=== PATIENT | female | born 1965 | race Caucasian/White ===

== ENCOUNTER → 2017-01-21 | Outpatient (CLI) | payer BC ==
--- NOTE | 2017-01-21 15:25 | DIAGNOSTIC IMAGING REPORT ---
MRI left hip LEFT LOWER EXT JOINT WITHOUT CLINICAL HISTORY: LT HIP PAIN pain TECHNIQUE: MRI multi axial acquisition COMPARISON STUDY: None FINDINGS: Signal characteristics the osseous structures are in general unremarkable. Abnormal signal characteristics are identified in the central superior aspect of the left femoral head. Diminished signal on T1 images measures 9 x 11 mm in cross-section with a millimeters at depths. This shows heterogeneous increase in signal in the T2 images is a calcific focus of avascular necrosis. There is also a heterogeneous focus lateral margin of the left superior acetabulum measuring 8 mm. An additional focus of avascular necrosis versus bone contusion must be considered. There is moderate degenerative change of the articular services of the right as well as left hip. There is no evidence for avascular necrosis of the right hip. There is no evidence for acetabular protrusion. All remaining osseous structures show unremarkable signal characteristics. All major muscle bundles are symmetric. No abnormal mass or collection is appreciated. IMPRESSION: 1. Somewhat compromised exam due to patient body habitus and moderate patient motion. 2. Nevertheless, study suggests a focus of avascular necrosis versus subchondral defect central superior femoral head measuring 9 x 11 mm in cross-section at the articular surface, and extending to a depth of 8 mm. 3. Although there appears to be a component of bony substance loss, exact quantification is difficult due to the lack of resolution. 4. Focal 8 mm contusion lateral aspect left superior acetabular margin laterally. 5. Generalized moderate to rather significant degenerative change of the articular services of both hips Electronically signed by: Maynor Ramirez M.D. 01/21/2017 3:23 PM Dictated Date/Time: 01/21/2017 3:15 PM
== END | disposition home or self-care (01) ==
LOC: C.MRIBC 14:28
PROVIDERS: ATTEND Orthopaedic Surgery Orthopaedic Surgery of the Spine
DX: S30.0XXA Contusion of lower back and pelvis, initial encounter (principal); X58.XXXA Exposure to other specified factors, initial encounter; M16.0 Bilateral primary osteoarthritis of hip

== ENCOUNTER → 2017-01-22 | Outpatient (CLI) | payer BC ==
--- NOTE | 2017-01-22 13:45 | DIAGNOSTIC IMAGING REPORT ---
LEFT HIP INJECTION UNDER FLUOROSCOPIC GUIDANCE CLINICAL HISTORY: Steroid injection. Degenerative change. PROCEDURE: The risks, benefits, and alternatives to the procedure were discussed with the patient. Written informed consent was obtained. The patient was placed supine on the fluoroscopy table, and a left hip injection was performed under fluoroscopic guidance. The area was prepped and draped in the usual sterile fashion. The skin and soft tissues anesthetized with local 1% lidocaine. The left hip joint was accessed utilizing a 22-gauge needle, and intra-articular positioning was confirmed by injecting a small volume of Optiray 300. The prescribed dosage of 2 cc of betamethasone and 8 cc of 0.5% Bupivacaine was then injected into the joint space and flushed with saline. The procedure was well tolerated and without immediate complication. The patient left the department in satisfactory condition. FLUOROSCOPY TIME: 20 seconds. IMPRESSION: Successful steroid injection of the left hip under fluoroscopic guidance. Electronically signed by: Rojelio Blanca M.D. 01/22/2017 1:43 PM Dictated Date/Time: 01/22/2017 1:41 PM
== END | disposition home or self-care (01) ==
LOC: C.RADBC 12:35
PROVIDERS: ATTEND Orthopaedic Surgery Orthopaedic Surgery of the Spine
DX: M16.12 Unilateral primary osteoarthritis, left hip (principal)

== ENCOUNTER → 2017-08-05 | Outpatient (CLI) | payer BC ==
[~2017-08-05] MED LIST: MethylPREDNISolone HOME PACK 16 MG TAB PO SCH
--- NOTE | 2017-08-05 12:16 | DIAGNOSTIC IMAGING REPORT ---
L INJ MAJOR JNT SHLDR,HIP,KNEE CLINICAL HISTORY: 52 years-old Female presenting with L HIP DJD. COMPARISON: 01/22/2017. PROCEDURE: The risks, benefits, and alternatives to the procedure were discussed with the patient. Written informed consent was obtained. The patient was placed supine on the fluoroscopy table, and a left hip injection was performed under fluoroscopic guidance. The area was prepped and draped in the usual sterile fashion. The skin and soft tissues anesthetized with local 1% lidocaine. The left hip joint was accessed utilizing a 22-gauge needle. Approximately 1 mL of Optiray 300 was injected into the joint space under fluoroscopic guidance to confirm intra-articular positioning. Subsequently, a 10 mL mixture containing 8 mL of 0.5% Bupivacaine and 2 mL of betamethasone was injected into the joint. The procedure was well tolerated without immediate complication. Fluoroscopy dosage (mGy): Not available. Fluoroscopy time: 30 seconds. Number of fluoroscopic spot images: 0. IMPRESSION: Successful injection of the left hip under fluoroscopic guidance. Electronically signed by: Cesar Broussard M.D. 08/05/2017 12:15 PM Dictated Date/Time: 08/05/2017 12:14 PM
== END | disposition home or self-care (01) ==
LOC: C.RADBC 10:51
PROVIDERS: ATTEND Orthopaedic Surgery Orthopaedic Surgery of the Spine
DX: M16.12 Unilateral primary osteoarthritis, left hip (principal)

== ENCOUNTER 2018-02-08 05:35 | Inpatient (IN) | payer BC ==
[2018-01-10 12:40] VITALS: BMI 33.0
--- NOTE | 2018-01-10 13:20 | PAT Medication Instructions ---
Service Date Jan 10, 2018. Current Home Medication List Cholecalciferol (Vitamin D3), 1 CAP PO QPM Diclofenac (Voltaren), 75 MG PO BID Docusate Sodium (Docusate Sodium), 1 CAP PO QPM Hydrocodon/Acetaminophen 5MG/300MG (Vicodin (5MG/300MG)), 1-2 TAB PO UD PRN for Pain Ibuprofen (Advil), 400 MG PO UD PRN for Pain Lorazepam (Ativan), 0.5 MG PO UD PRN for PRN Magnesium Oxide (Magnesium), 1 CAP PO Tramadol (Ultram), 1 TAB PO UD PRN for Pain Medication Instructions For Your Scheduled Surgery - Hold the following medications 10 days prior to surgery: Diclofenac (Voltaren), 75 MG PO BID Ibuprofen (Advil), 400 MG PO UD PRN for Pain - Take the following medications the morning of surgery with a sip of water: Hydrocodon/Acetaminophen 5MG/300MG (Vicodin (5MG/300MG)), 1-2 TAB PO UD PRN for Pain (if needed, can be taken up to four hours before surgery) Lorazepam (Ativan), 0.5 MG PO UD PRN for PRN (if needed) Tramadol (Ultram), 1 TAB PO UD PRN for Pain (if needed, can be taken up to four hours before surgery) - Take the following medications as scheduled the night before surgery: Cholecalciferol (Vitamin D3), 1 CAP PO QPM Docusate Sodium (Docusate Sodium), 1 CAP PO QPM Hydrocodon/Acetaminophen 5MG/300MG (Vicodin (5MG/300MG)), 1-2 TAB PO UD PRN for Pain (if needed) Lorazepam (Ativan), 0.5 MG PO UD PRN for PRN (if needed) Tramadol (Ultram), 1 TAB PO UD PRN for Pain (if needed) Magnesium Oxide (Magnesium), 1 CAP PO If you have any questions please call us at [phone] or [phone] or [phone]
--- NOTE | 2018-01-10 14:07 | DIAGNOSTIC IMAGING REPORT ---
CHEST 2 VIEWS ROUTINE HISTORY: 52 years-old Female PAT preoperative exam. No acute chest complaints. COMPARISON: None available TECHNIQUE: PA and lateral views of the chest FINDINGS: Cardiomediastinal and hilar silhouettes are within normal limits. There is no pneumothorax, pleural effusion, focal airspace consolidation or overt pulmonary edema. The bones of the chest appear grossly intact. IMPRESSION: No acute process. The above report was generated using voice recognition software. It may contain grammatical, syntax or spelling errors. Electronically signed by: Sandro Becerra M.D. 01/10/2018 2:05 PM Dictated Date/Time: 01/10/2018 2:05 PM
[2018-01-10 14:43] LABS: BASO % 0.4 %; BASO ABS # 0.02 K/uL (0-0.2); EOS % 1.9 %; HEMATOCRIT 38.7 % (37-47); HEMOGLOBIN 13.1 g/dL (12.0-16.0); IG# 0.03 K/uL (0.00-0.02); LYMPH % 17.3 %; MEAN CORPUSCULAR HEMOGLOBIN 30.1 pg (25-34); MEAN CORPUSCULAR HGB CONC 33.9 g/dl (32-36); MEAN PLATELET VOLUME 10.2 fL (7.4-10.4); MONO % 10.6 %; MONO ABS # 0.55 K/uL (0.11-0.59); NEUT % 69.2 %; NEUT ABS # 3.59 K/uL (1.4-6.5); PLATELET COUNT 318 K/uL (130-400); RED CELL DISTRIBUTION WIDTH CV 13.8 % (11.5-14.5); RED CELL DISTRIBUTION WIDTH SD 45.2 fL (36.4-46.3); WHITE BLOOD COUNT 5.19 K/uL (4.8-10.8)
[2018-01-10 14:53] LABS: INR 0.9 (0.9-1.1); PTT PATIENT 26.1 SECONDS (21.0-31.0)
[2018-01-10 15:48] LABS: CALCIUM 9.2 mg/dl (8.5-10.1); CREATININE 1.06 mg/dl (0.60-1.20); POTASSIUM 4.6 mmol/L (3.5-5.1)
--- NOTE | 2018-02-02 21:11 | HISTORY & PHYSICAL EXAMINATION ---
DATE OF ADMISSION: 02/08/2018 CHIEF COMPLAINT: Left hip pain. HISTORY OF PRESENT ILLNESS: This is a 52-year-old female referred by my partner Dr. Mcgrath for surgical treatment of her left hip. She has about a 3-year history of increasing left hip pain and discomfort. It has gradually just gotten worse over time. It got markedly worse over the past year. She has had multiple musculoskeletal issues in the past including some chronic back pain. She has been through extensive conservative care. She continues to have groin pain, thigh pain, buttock pain. The more she walks, the more she hurts. She has difficulty going to the grocery store due to her limited walking tolerance. She has taken intermittent narcotics which takes the edge off it when it is real severe. She has taken various NSAIDs with minimal relief. She would really like to have her left hip fixed. PAST MEDICAL HISTORY: 1. Sciatica. 2. Low back pain. 3. Arthritis. 4. Gastroesophageal reflux disease. 5. Obesity, BMI of 33. PREVIOUS SURGERIES: Include: 1. Cyst removal from her ovary in 1977. 2. Cystectomy and ablation in 2002. ALLERGIES: IODINE, SPECIFICALLY SHELLFISH ALLERGY. No topical iodine allergy. CURRENT MEDICATIONS: Include: 1. Magnesium. 2. Diclofenac. SOCIAL HISTORY: This is a 52-year-old female. She is . Does not smoke. FAMILY HISTORY: Negative for heart disease, diabetes or blood clots. REVIEW OF SYSTEMS: Negative for diabetes, neurologic problem, vascular problem, bleeding disorders. Denies any chest pain, no shortness of breath. No history of DVT or PE. She does have a lot of musculoskeletal aches and pains. PHYSICAL EXAMINATION: GENERAL: Shows a pleasant middle-aged female, looks to be in pretty good health. HEENT: Benign. NECK: Supple, no lymphadenopathy. LUNGS: Clear to auscultation. HEART: Regular rate and rhythm. ABDOMEN: Soft, nontender, nondistended. EXTREMITIES: Grossly neurovascularly intact except as follows: Examination of left hip and leg reveals the patient walks with an antalgic gait. Leg lengths appear equal. She has a fairly good hip motion with internal rotation to about 10 degrees, does cause pain with this. Negative straight leg raise. Motor strength is normal. X-RAYS: X-rays left hip reviewed, show advanced left hip DJD. She has complete loss of her joint space. She has got not a lot of osteophyte formation. X-rays of the lumbar spine were also reviewed, show moderate lumbar spondylosis. A little bit of degenerative spondylolisthesis at L4 and L5, fairly mild. ASSESSMENT: A 52-year-old white female with multiple musculoskeletal aches and pains with advanced left hip arthritis. Certainly, she has got multiple sources of musculoskeletal pain but significant hip arthritis. She has failed conservative treatment. She would like to have her left hip replaced. PLAN: We will take her to the operating room and do left total hip replacement. The risks and benefits of this procedure were explained to the patient including but not limited to DVT, PE, , infection, neurological injury, vascular injury, bleeding problem, pain, limited range of motion, stiffness, failure to relieve her symptoms, incomplete relief of symptoms, need for further surgery in future, fracture, leg length inequality, nerve palsy, dislocation, need for revision surgery, incomplete relief of symptoms. She is fully aware this is not going to take away all of her aches and pains but I do think it can help her significantly. As far as discharge plans, she is planning to be discharged to home. Her can assist in her care and she has multiple family members to help as well. She knows to hold her diclofenac 2 weeks preop. We have encouraged her to limit any narcotic use preoperatively.
[2018-02-08] VITALS (21 sets, daily range): BP systolic 93–143; BP diastolic 58–93; PULSE 65–96; TEMP 36.4–39; O2SAT 94–100; Ht 172.7 cm; Wt 97.7 kg
[~2018-02-08] VITALS: Ht 172.7 cm; Wt 97.7 kg
[~2018-02-08 05:35] MED LIST changes: +CHOL2000 PO; +DICL-201 PO; +DOCU100C31 PO; +HYDR-3419 PO; +IBUP-1050 PO; +LORA-741 PO; +MAGN1CAP4 PO; -MethylPREDNISolone HOME PACK 16 MG TAB PO SCH; +TRAM-10 PO
[2018-02-08] MEDS ORDERED: FAMOTIDINE 20 MG TAB PO SCH (06:00)
[2018-02-08] MEDS ORDERED: CEFAZOLIN 2000MG IV PUSH 15 ML IV SCH (06:00)
[2018-02-08] MEDS ORDERED: LACTATED RINGER'S 1000ML IV SCH (06:00)
[2018-02-08] MEDS ORDERED: ACETAMINOPHEN 500 MG TAB PO SCH (06:00)
[2018-02-08] MEDS ORDERED: SCOPOLAMINE 1.5 MG TDSY TD SCH (06:00)
[2018-02-08] MEDS ORDERED: GABAPENTIN 900 MG PO SCH (06:00)
[2018-02-08] MEDS ORDERED: TRANEXAMIC ACID INJ 1,000 MG x 1 Bag Intra-Op IV SCH ×2 (06:00)
[2018-02-08] MEDS ORDERED: LACTATED RINGER'S 1000ML 500 ML IV SCH (06:00)
[2018-02-08] MEDS ORDERED: METOCLOPRAMIDE HCL 10 MG TAB PO SCH (06:00)
[2018-02-08] MEDS ORDERED: BUPIVACAINE 0.5 % 5 MG/1 ML PF 10ML VIAL ONE (06:21)
[2018-02-08] MEDS ORDERED: MoRPHine SULFATE PF 1 MG/ML 10 ML AMP/VIAL ONE (06:40)
[2018-02-08] MEDS ORDERED: MIDAZOLAM HCL 1 MG/ML 2ML VIAL ONE ×2 (06:45→07:13)
[2018-02-08] MEDS ORDERED: FENTANYL CITRATE INJ 50 MCG/1 ML 2 ML VIAL ONE (06:45)
[2018-02-08] MEDS ORDERED: BUPIVACAINE/EPINEPHRINE 0.5% MPF 1:200,000 30 ML VIAL ONE (06:46)
[2018-02-08] MEDS ORDERED: BACITRACIN 50000 UNIT VIAL ONE (06:46)
--- NOTE | 2018-02-08 06:47 | History & Physical Bridge Note ---
H&P Re-Evaluation Bridge Note: I have examined the patient, reviewed the History & Physical and in the interval since the performance of the History & Physical I have noted the following changes of clinical significance: No changes noted
[2018-02-08] MEDS ORDERED: PROPOFOL IV EMULSION 10 MG/ML 20 ML VIAL IV ONE (07:20)
[2018-02-08] MEDS ORDERED: ONDANSETRON INJ 2 MG/ML 2 ML VIAL ONE (07:20)
[2018-02-08] MEDS ORDERED: DiphenhydrAMINE HCL 50 MG/ML VIAL ONE (07:20)
[2018-02-08] MEDS ORDERED: LIDOCAINE HCL 2% 2 ML VIAL (20MG/ML) ONE (07:20)
[2018-02-08] MEDS ORDERED: PHENYLEPHRINE 100MCG/ML 5ML SYR ONE (07:34)
[2018-02-08] MEDS ORDERED: LACTATED RINGER'S 1000ML 500 ML IV PRN (07:58)
[2018-02-08] MEDS ORDERED: NALOXONE HCL INJ 0.08 MG in SYRINGE 1.8 ML IV PRN (07:58)
[2018-02-08] MEDS ORDERED: SODIUM CHLORIDE 0.9% 1000ML 1,000 ML IV PRN (07:58)
[2018-02-08] MEDS ORDERED: NALOXONE HCL INJ 1 MG in SODIUM CHLORIDE 0.9% 1000ML 1,000 ML IV PRN (07:58)
[2018-02-08] MEDS ORDERED: NALOXONE HCL 0.4 MG/1 ML VIAL/CARP IV PRN (08:00)
[2018-02-08] MEDS ORDERED: MoRPHine SULFATE 2 MG/ML CARP IV PRN (08:00)
[2018-02-08] MEDS ORDERED: LORAZEPAM 1 MG TAB PO PRN (08:00)
[2018-02-08] MEDS ORDERED: MoRPHine SULFATE PF 1 MG/ML 10 ML AMP/VIAL EPI PRN (08:00)
[2018-02-08] MEDS ORDERED: MEPERIDINE HCL 25 MG/ML CARP IV PRN (08:00)
[2018-02-08] MEDS ORDERED: DiphenhydrAMINE HCL 50 MG/ML VIAL IV PRN ×2 (08:00)
[2018-02-08] MEDS ORDERED: KETOROLAC TROMETHAMINE 30 MG/ML VIAL IV. PRN (08:00)
[2018-02-08] MEDS ORDERED: NO NARCOTICS OR SEDATIVES SCH (08:00)
[2018-02-08] MEDS ORDERED: ONDANSETRON INJ 2 MG/ML 2 ML VIAL IV PRN ×2 (08:00)
[2018-02-08] MEDS ORDERED: EpHEDrine SULFATE INJ 50 MG/ML AMP IV PRN ×2 (08:00)
[2018-02-08] MEDS ORDERED: FENTANYL CITRATE INJ 50 MCG/1 ML 2 ML VIAL IV PRN (08:00)
[2018-02-08] MEDS ORDERED: LORAZEPAM INJ 0.5 MG in SYRINGE 0.75 ML IV PRN (08:00)
[2018-02-08] MEDS ORDERED: PROMETHAZINE HCL INJ 6.25 MG in SODIUM CHLORIDE 0.9% 50ML 50 ML IV PRN (08:00)
[2018-02-08] MEDS ORDERED: NALBUPHINE HCL INJ 10 MG/ML AMP IV PRN (08:00)
[2018-02-08] MEDS ORDERED: PROMETHAZINE HCL INJ 12.5 MG in SODIUM CHLORIDE 0.9% 50ML 50 ML IV PRN (08:00)
[2018-02-08] MEDS ORDERED: ATROPINE SULFATE 0.1 MG/ML 5ML SYR IV PRN (08:00)
--- NOTE | 2018-02-08 08:39 | [facility] Post Operative Brief Note ---
Immediate Operative Summary Operative Date Feb 08, 2018. Pre-Operative Diagnosis Left Hip Degenerative Joint Disease Post-Operative Diagnosis Same as preop Procedure(s) Performed Left Total Hip Arthroplasty Uncemented Surgeon Dr. Glaser Housefellow Surgeon(s) Dano Joiner PA-C Estimated Blood Loss 300 ml Findings Consistent with Post-Op Diagnosis Fluids (cc crystalloids) 1800 cc Specimens A. Left Femoral Head Drains None Anesthesia Type Spinal MAC Complication(s) none Disposition Accompanied Pt To Recover: yes Disposition: Recovery Room / PACU
[2018-02-08] MEDS ORDERED: BISACODYL 10 MG SUPP PR PRN (08:45)
[2018-02-08] MEDS ORDERED: ALUMINUM/MAGNESIUM/SIMETH (MAALOX MAX) 30 ML UDC PO PRN (08:45)
[2018-02-08] MEDS ORDERED: SILVER SULFADIAZINE 1% CR 50 GM JAR EXT PRN (08:45)
[2018-02-08] MEDS ORDERED: MAGNESIUM HYDROXIDE SUSP 30 ML UDC PO PRN (08:45)
[2018-02-08] MEDS: MULTIVITAMIN TAB PO SCH (09:00)
[2018-02-08] MEDS: PANTOprazole SOD 40 MG TAB PO SCH (09:00)
[2018-02-08] MEDS: DOCUSATE SODIUM 100 MG CAP PO SCH ×2 (09:00→20:44)
--- NOTE | 2018-02-08 09:53 | Anesthesiology Progress Note ---
Anesthesia Post Op Note Date & Time Feb 08, 2018 at 09:53 Vital Signs Pain Intensity: 0 Vital Signs Past 12 Hours Date Time Temp Pulse Resp B/P (MAP) Pulse Ox O2 Delivery O2 Flow Rate FiO2 02/08/18 09:40 70 12 97/58 95 Nasal Cannula 2 02/08/18 09:30 68 14 93/60 96 Nasal Cannula 2 02/08/18 09:20 72 13 95/60 94 Nasal Cannula 2 02/08/18 09:10 82 18 103/63 96 Nasal Cannula 2 02/08/18 09:00 89 16 100/61 100 Oxymask 10 02/08/18 08:50 79 15 109/63 100 Oxymask 10 02/08/18 08:42 36.0 76 14 100/60 100 Oxymask 10 02/08/18 05:55 36.6 94 20 143/93 99 Room Air Notes Mental Status: alert / awake / arousable, participated in evaluation Pt Amnestic to Procedure: Yes Nausea / Vomiting: adequately controlled Pain: adequately controlled Airway Patency, RR, SpO2: stable & adequate BP & HR: stable & adequate Hydration State: stable & adequate Neuraxial Anesthesia: was administered, sensory block is resolving Anesthetic Complications: no major complications apparent
--- NOTE | 2018-02-08 10:19 | DIAGNOSTIC IMAGING REPORT ---
SINGLE VIEW PELVIS; SINGLE VIEW LEFT HIP CLINICAL HISTORY: Postoperative examination. FINDINGS: An AP portable view of the hips and pelvis with a crosstable lateral portable view of the left hip are obtained. A bipolar left hip arthroplasty is in near-anatomic alignment. At least 2 cortical lag screws transfix the acetabular cup. No acute fracture is identified. There are expected postoperative changes overlying the left hip including skin clips, subcutaneous gas, and soft tissue swelling. Numerous calcified phleboliths are observed in the pelvis. Moderate arthritic change is seen in the right hip. IMPRESSION: Expected postoperative findings status post left hip arthroplasty. No acute fracture is seen. Electronically signed by: Rojelio Blanca M.D. 02/08/2018 10:18 AM Dictated Date/Time: 02/08/2018 10:17 AM
[2018-02-08] MEDS: D5W AND 1/2NSS + 20MEQ KCL 1,000 ML IV SCH ×2 (11:21→19:21)
--- NOTE | 2018-02-08 12:05 | OPERATIVE REPORT ---
DATE OF OPERATION: 02/08/2018 SURGEON: Dr. Zack Glaser. MEDICAL STAFF SERVICES MANAGER: FARHANA Arreola PREOPERATIVE DIAGNOSIS: Left hip degenerative joint disease. POSTOPERATIVE DIAGNOSIS: Same. PROCEDURE PERFORMED: Left uncemented ceramic on highly cross-linked polyethylene total hip arthroplasty. COMPLICATIONS: None. ESTIMATED BLOOD LOSS: 300 mL FLUID REPLACEMENT: 1800 mL crystalloid fluid replacement. ANESTHESIA: Spinal. DRAINS: None. SPECIMENS: Left femoral head sent for pathology. OPERATIVE INDICATIONS: The patient is a 52-year-old female who has had a 3-year history of increasing left hip pain and discomfort. This got significantly worse over the past year and a half. She has multiple musculoskeletal issues including back pain as well. X-ray show progressive hip arthritis over the past several years. She failed conservative treatment, elected to proceed with operative treatment. OPERATIVE FINDINGS: Operative findings revealed advanced left hip DJD. She had pretty extensive grade 4 changes of the femoral head and acetabulum. Not a lot of osteophytes, but degenerative changes throughout. Moderate size joint effusion. She did have a very lax soft tissue envelope with a pretty good hip motion despite her severe arthritis. OPERATIVE IMPLANTS: Operative implants consisted of: 1. Biomet G7 size 52-mm acetabular shell. 2. A 6.5 cancellous acetabular screws, 1 at 35 mm length and 1 at 20 mm in length. 3. An apex hole eliminator. 4. A highly cross-linked polyethylene liner with a 52-mm outer diameter and a 32-mm inner diameter. 5. A DePuy Corail size 10 coxa vara femoral stem. 6. A +5/32 mm ceramic articular ball. OPERATIVE PROCEDURE: The patient taken to the operating room, identified and placed on the operative table in supine position. All contact areas were appropriately padded. IV antibiotics were provided by anesthesia team. A spinal anesthetic had been implemented in the holding area. Andrew catheter was placed in sterile fashion. The patient was then placed in the right lateral decubitus position. An axillary roll was placed. Counts Include [facility] hip positioner was used for positioning. The left hip and leg were then prepped and draped in usual sterile fashion. A posterolateral approach to the left hip was then performed through a curvilinear incision centered over the greater trochanter. Sharp dissection was carried through the subcutaneous tissue down to the IT band and gluteal fascia. The IT band and gluteal fascia was then incised longitudinally in line with skin incision. The underlying greater trochanteric bursa was excised. The piriformis and external rotators were tagged and taken off the posterior aspect of the femur. Great care was taken throughout the procedure to protect the sciatic nerve at all times. Posterior capsulotomy was then performed leaving a large flap for later repair. The hip was internally rotated and dislocated. Femoral neck osteotomy cut was made with the final cut about 12 mm above the lesser trochanter. Femoral head was removed and sent for pathology. The femur was retracted anteriorly. Attention was then drawn to the acetabulum. The acetabular labrum was excised. The pulvinar fat was excised. Sequential reaming of the acetabulum was then performed beginning with a size 45 and progressing up to a 51. A 52-mm Biomet G7 acetabular shell was then placed in about 40 degrees of lateral opening and 25-degrees of anteversion. I did put a little extra anteversion in her cup as she had quite a bit of soft tissue laxity and I was concerned about posterior instability. A trial liner was placed. Attention was then drawn to the femur. The proximal femur was entered with [place] cutter followed by the canal finder. I then broached beginning with a size 8 and progressing up to a 10. We got really pretty good fit at the 10, and I did not think we could probably get the 11 down. We elected to use this. The calcar reamer was used to smoothen off the calcar. We then trialed the hip and the +5 articular ball recreated leg lengths appropriately and provided full stability and full extension and external rotation, flexion to 90 degrees, internal rotation to 50+ degrees. We elected to use these implants. There was still some soft tissue laxity, but I felt the tissue. This situation was optimized. All trial implants were removed. An apex hole eliminator was placed. A highly cross-linked polyethylene liner was placed. A size 10 coxa vara Corail femoral stem was impacted in position. A +5/32 mm ceramic articular ball was placed. Hip was located and once again found to be stable. Attention was then drawn toward closing. The wound was irrigated with copious amounts of pulsatile lavage solution. I did inject locally with 60 mL of 0.5% Marcaine with epinephrine. The posterior capsule and external rotators were repaired through drill holes in the posterior trochanter with #2 Ti-Cron suture. The IT band and gluteal fascia were then closed with #1 PDS suture in running fashion. The subcutaneous tissue then closed with 2 layers, the deep layer #1 Vicryl suture in a buried interrupted fashion. The subcutaneous tissues with 2-0 Dexon suture in a buried interrupted fashion. The skin was closed with skin ki. Leg was then cleaned, dried and a sterile dressing of Xeroform, 4 x 4's, ABD pad and foam tape was applied. The patient then transferred to the recovery room in stable condition. The patient tolerated the procedure well with no complication. All needle and sponge counts were correct at the end of the operation. I attest to the content of the Intraoperative Record and any orders documented therein. Any exceptions are noted below. JOSE LUISD
[2018-02-08] MEDS: ACETAMINOPHEN 500 MG TAB PO SCH ×2 (13:19→21:37)
[2018-02-08] MEDS: FERROUS GLUCONATE 324 MG TAB PO SCH ×2 (13:19→17:48)
[2018-02-08] MEDS ORDERED: TRANEXAMIC ACID INJ 1,000 MG in SODIUM CHLORIDE 0.9% 100ML 100 ML IV SCH (14:30)
[2018-02-08] MEDS: CHECK SCOPOLAMINE PATCH PLACEMENT SCH ×2 (16:03→23:15)
[2018-02-08] MEDS: CEFAZOLIN IV 2,000 MG in SYRINGE 0 ML IV SCH ×2 (16:06→23:15)
--- NOTE | 2018-02-08 17:29 | Progress Note ---
Progress Note Date of Service Feb 08, 2018. Progress Note Called by nursing staff regarding pt complaint of blurry vision. Pt seen and examined. Blurry vision has improved. No headache, neck stiffness, slurred speech. Eyes examined with intact EOM and JAGUAR. Good strength bilateral UE and LE. Pt has a scopolamine patch and is the most likely cause of her blurry vision. Explained to patient regarding side effects of scopolamine patch including dizziness, somnolance, and dry mouth. She stated that she also has dry mouth. Explained to patient that the patch was placed to prevent n/v from intrathecal morphine that she received. Offered to remove patch but patient stated that blurry vision has improved and that she would like to keep the patch. Explained to patient to let medical staff know if symptoms worsen. Pt understood and agreed with plan.
--- NOTE | 2018-02-08 19:22 | PROGRESS NOTE ---
DATE: 02/08/2018 SUBJECTIVE: A 52-year-old white female postop from a left hip replacement. She is doing well. She had some dizziness and double vision earlier and the anesthesia saw her and removed her scopolamine patch. This seemed to be resolved. No other complaints. Pain is controlled. No chest pain or shortness of breath. Not feeling dizzy or lightheaded. OBJECTIVE: VITAL SIGNS: Temperature 36.4. Vital signs stable. GENERAL: Reveals a pleasant, middle-aged female. She is sitting up in her bedside chair and looks comfortable. LUNGS: Clear to auscultation. HEART: Regular rate and rhythm. ABDOMEN: Soft, nontender, nondistended. EXTREMITIES: Grossly neurovascularly intact except as follows. Examination of the left hip and leg reveals the dressing to be clean, dry and intact. She can dorsiflex and plantarflex her foot appropriately. She is neurologically intact. X-RAYS: X-rays of the left hip from recovery room reviewed. Shows left uncemented total hip arthroplasty. The components looked to be in good position. No signs of problems. ASSESSMENT: A 52-year-old female postop from a left total hip replacement, doing well. Pain is controlled. Hip is located. She is neurologically intact. PLAN: 1. DVT prophylaxis including thigh-high TEDs, SCDs, and aspirin twice a day. 2. PT, OT. Weight bear as tolerated. Left total hip protocol. 3. Pain control, doing well with current pain regimen. 4. IV antibiotics x24 hours. 5. Disposition: Plan to discharge to home with some home health once adequately recovered.
[2018-02-08] MEDS: ASPIRIN 81 MG ECTAB PO SCH (20:44)
[2018-02-08] MEDS: SENNA 8.6 MG TAB PO SCH (20:45)
[2018-02-08] MEDS: CHOLECALCIFEROL 1000 INTER.UNIT TAB PO SCH (20:45)
[2018-02-08] MEDS ORDERED: TRAM-10 PO (20:53)
[2018-02-08] MEDS ORDERED: ASPEC81 PO (20:54)
[2018-02-08] MEDS ORDERED: ACET-24 PO (20:54)
[2018-02-08] MEDS ORDERED: ONDA4TAB65 PO (20:54)
--- NOTE | 2018-02-08 20:57 | Discharge Instructions ---
Discharge Instructions Date of Service Feb 08, 2018. Admission Reason for Admission: Left Hip Degenerative Joint Disease Discharge Discharge Diagnosis / Problem: Left Hip Replacement Discharge Goals Goal(s): Decrease discomfort, Improve function, Increase independence, Improve disease control, Therapeutic intervention Activity Recommendations Activity Limitations: per Instructions/Follow-up section (Total Hip Precautions ) Weightbearing Status: Left weightbearing . Instructions / Follow-Up Instructions / Follow-Up ACTIVITY RECOMMENDATIONS: Physical Therapy: * Aggressive physical therapy is not usually needed. You will learn to take care of yourself safely and walk. * Follow the "Hip Precautions Instructions." * In some cases, the social sciences lecturer at the hospital will arrange to have a therapist come to your house for the first couple of weeks to help you learn these skills. * You need to practice on your own or with the help of a family member as needed. * When you learn these skills, most of the therapy can be done on your own. Home Exercise: * You were shown a series of exercises in the hospital. Do these exercises three to four times each day including the exercises you were shown in physical therapy. Walking: * Get up and walk several times each day. For the first four weeks, try not to stand or walk for more than one hour at a time. If you do stand or walk for more than one hour, you will not hurt anything, but your leg will likely swell. * As you feel comfortable, you may change from the walker or crutches to a cane and then to independent walking. MEDICATIONS: New Medicine: * You will likely be taking one or more of these medicines: 1. Tramadol - Take, as directed, when you need it, every four to six hours to control your pain. 2. Aspirin - Thins your blood to lessen the chance of forming a blood clot. * The most common side effects of pain medicine and iron are nausea and constipation. If nausea or constipation is too much of a problem or if you have any questions about your new medicines or doses, call [facility] at [phone]. We will try to help you manage these issues. VERY IMPORTANT TO READ AND REVIEW" Pain: * The immediate post-operative period after hip replacement surgery is often quite painful. * You are given a prescription for pain medicine. You should take it, as directed, when you need it, especially before physical therapy and before going to bed. Pain that interferes with sleep is very common and can last several months. * You will likely need pain medicine for the first two to four weeks. It will not stop all of the pain. The pain will lessen and as you feel better, you may change to milder pain medicine such as Tylenol. * The most common side effects of pain medicine are nausea and constipation, so don't take more than you need. SPECIAL CARE INSTRUCTIONS: TEDs/Elastic Stockings: * The white elastic stockings help limit swelling and prevent blood clots from forming in your legs. The more you wear them, the more they work. * Wear them for six weeks. Prevention of Infection: * Take antibiotics one hour before any dental cleaning, dental work, urological procedure, gastrointestinal procedure or any invasive surgery in order to prevent your new joint from getting infected. * You may get the antibiotics from the doctor performing the procedure or you may call our office at before and we will call in a prescription to the pharmacy of your choice. Things to Watch For: * Drainage from the incision site that occurs more than one week after your surgery. * Severely increased leg pain or swelling. * Increased redness at the incision site. * Fever above 102 degrees Fahrenheit. * Unusual chest pain or shortness of breath. * Unusual pain or burning with urination. Call [facility] at with any of the above problems or if you have any questions about your medicines or recovery. FOLLOW UP VISIT: Make an appointment to see your doctor for approximately two weeks after surgery for a progress check and staple removal by calling the office at . Current Hospital Diet Patient's current hospital diet: Regular Diet Discharge Diet Recommended Diet: Regular Diet Procedures Procedures Performed: Left Total Hip Arthroplasty Uncemented Pending Studies Studies pending at discharge: no Medical Emergencies . Who to Call and When: Medical Emergencies: If at any time you feel your situation is an emergency, please call [phone] immediately. . Non-Emergent Contact Non-Emergency issues call your: Surgeon . "Provider Documentation" section prepared by Zack Glaser. .
[2018-02-08] MEDS ORDERED: DOCUSATE SODIUM 100 MG CAP PO SCH (21:00)
[2018-02-08] MEDS ORDERED: COUGH DROP (SUGAR FREE) LOZ 24 LOZ/1 BOX LOZ PRN (21:15)
[2018-02-09] VITALS (10 sets, daily range): BP systolic 100–116; BP diastolic 64–74; PULSE 77–100; TEMP 36.9–37.8; O2SAT 92–98
[2018-02-09] MEDS ORDERED: DC INTRASPINAL MORPHINE SCH (01:00)
[2018-02-09] MEDS ORDERED: METOCLOPRAMIDE HCL INJ 5 MG/ML 2 ML VIAL IV PRN (01:01)
[2018-02-09] MEDS ORDERED: LORAZEPAM 0.5 MG TAB PO PRN (01:01)
[2018-02-09] MEDS ORDERED: ZOLPIDEM TARTRATE 5 MG TAB PO PRN (01:01)
[2018-02-09] MEDS ORDERED: DiphenhydrAMINE HCL 50 MG/ML VIAL IV PRN (01:01)
[2018-02-09] MEDS ORDERED: HYDROmorphone INJ 0.5 MG/0.5 ML SYR IV PRN (01:01)
[2018-02-09] MEDS: D5W AND 1/2NSS + 20MEQ KCL 1,000 ML IV SCH (01:59)
[2018-02-09] MEDS: KETOROLAC TROMETHAMINE 30 MG/ML VIAL IV. SCH ×5 (01:59→21:28)
[2018-02-09] MEDS: ACETAMINOPHEN 500 MG TAB PO SCH ×3 (06:16→21:30)
[2018-02-09 06:36] LABS: BASO % 0.1 %; BASO ABS # 0.01 K/uL (0-0.2); EOS % 0.7 %; EOS ABS # 0.06 K/uL (0-0.5); HEMATOCRIT 32.7 % (37-47); HEMOGLOBIN 10.8 g/dL (12.0-16.0); IG# 0.02 K/uL (0.00-0.02); LYMPH % 10.3 %; LYMPH ABS # 0.93 K/uL (1.2-3.4); MEAN CELL VOLUME 89.8 fL (80-100); MEAN CORPUSCULAR HEMOGLOBIN 29.7 pg (25-34); MONO % 9.4 %; MONO ABS # 0.85 K/uL (0.11-0.59); NEUT % 79.3 %; NEUT ABS # 7.15 K/uL (1.4-6.5); PLATELET COUNT 230 K/uL (130-400); RED CELL DISTRIBUTION WIDTH CV 13.5 % (11.5-14.5); RED CELL DISTRIBUTION WIDTH SD 45.1 fL (36.4-46.3); WHITE BLOOD COUNT 9.02 K/uL (4.8-10.8)
[2018-02-09 07:10] LABS: CALCIUM 8.2 mg/dl (8.5-10.1); CREATININE 1.06 mg/dl (0.60-1.20); POTASSIUM 4.2 mmol/L (3.5-5.1)
[2018-02-09] MEDS: CHECK SCOPOLAMINE PATCH PLACEMENT SCH ×2 (08:00→15:29)
--- NOTE | 2018-02-09 08:15 | PROGRESS NOTE ---
DATE: 02/09/2018 SUBJECTIVE: A 52-year-old white female postop day 1 from a left hip replacement. She is doing well. Pain is controlled. She is concerned about constipation. No chest pain or shortness of breath. Not feeling dizzy or lightheaded. OBJECTIVE: VITAL SIGNS: Temperature 36.8. Vital signs stable. GENERAL: A pleasant middle-aged male. She is sitting up at her bedside chair, looks pretty comfortable. She is getting around pretty well. I saw her walk from the bathroom to her chair pretty well. EXTREMITIES: Examination of the hip reveals the dressing to be clean, dry and intact. Hip is located. She is neurologically intact. LABORATORY DATA: Hemoglobin 10.8. Hematocrit 32.7. Electrolytes are stable. ASSESSMENT: A 52-year-old female postop day 1 from a left hip replacement, doing pretty well. Pain is controlled. Her hips located. She is neurologically intact. PLAN: 1. DVT prophylaxis including thigh high TEDs, SCDs, and aspirin twice a day. 2. PT, OT. Weight bear as tolerated. Left total hip protocol. 3. Pain control, doing well with current pain regimen. 4. Disposition: Plan to discharge to home with some home health once adequately recovered.
[2018-02-09] MEDS: FERROUS GLUCONATE 324 MG TAB PO SCH ×3 (08:50→17:35)
[2018-02-09] MEDS: DOCUSATE SODIUM 100 MG CAP PO SCH ×2 (08:50→21:29)
[2018-02-09] MEDS: MULTIVITAMIN TAB PO SCH (08:52)
[2018-02-09] MEDS: ASPIRIN 81 MG ECTAB PO SCH ×2 (08:52→21:29)
[2018-02-09] MEDS: PANTOprazole SOD 40 MG TAB PO SCH (08:53)
[2018-02-09] MEDS: TAPENTADOL ER 50 MG TABCR PO SCH ×2 (08:53→21:30)
[2018-02-09] MEDS: ONDANSETRON INJ 2 MG/ML 2 ML VIAL IV PRN ×2 (08:54→21:28)
[2018-02-09] MEDS: OXYCODONE HCL IR 5 MG TAB (IMMEDIATE RELEASE) PO PRN (08:54)
[2018-02-09] MEDS ORDERED: MAGNESIUM OXIDE 400 MG TAB PO SCH ×2 (09:00→21:00)
[2018-02-09] MEDS ORDERED: NURSING VERBAL MED ORDER ONE (10:45)
[2018-02-09] MEDS: CHOLECALCIFEROL 1000 INTER.UNIT TAB PO SCH (21:29)
[2018-02-09] MEDS: SENNA 8.6 MG TAB PO SCH (21:29)
[2018-02-10] MEDS: CHECK SCOPOLAMINE PATCH PLACEMENT SCH ×2 (00:08→08:05)
[2018-02-10] MEDS: KETOROLAC TROMETHAMINE 30 MG/ML VIAL IV. SCH ×2 (01:30→08:00)
[2018-02-10] MEDS: OXYCODONE HCL IR 5 MG TAB (IMMEDIATE RELEASE) PO PRN (04:32)
[2018-02-10] MEDS: ACETAMINOPHEN 500 MG TAB PO SCH (05:51)
[2018-02-10 07:28] VITALS: BP 107/71; PULSE 88; TEMP 36.4; O2SAT 96
--- NOTE | 2018-02-10 08:05 | PROGRESS NOTE ---
DATE: 02/10/2018 SUBJECTIVE: A 52-year-old female postop day 2 from a left total hip replacement. She is doing pretty well. A little bit more sore and stiff this morning. No chest pain or shortness of breath. Not feeling dizzy or lightheaded. OBJECTIVE: VITAL SIGNS: Temperature 36.4. Vital signs stable. PHYSICAL EXAMINATION: GENERAL: Reveals a pleasant, middle-aged female. She is sitting up in bed, looks pretty comfortable. EXTREMITIES: Examination of left hip reveals the incision to be clean, dry and intact. No significant drainage. Leg lengths were equal. Hip is located. She is neurologically intact. ASSESSMENT: A 52-year-old female postop day 2 from left hip replacement, doing reasonably well. PLAN: 1. DVT prophylaxis including thigh-high TEDs, SCDs, and aspirin twice a day. 2. PT/OT. Weight bear as tolerated. Left total hip protocol. 3. Pain control, doing well with current pain regimen. 4. Disposition: Plan to discharge to home with some home health later today.
[2018-02-10] MEDS: DOCUSATE SODIUM 100 MG CAP PO SCH (08:06)
[2018-02-10] MEDS: MULTIVITAMIN TAB PO SCH (08:06)
[2018-02-10] MEDS: ASPIRIN 81 MG ECTAB PO SCH (08:06)
[2018-02-10] MEDS: FERROUS GLUCONATE 324 MG TAB PO SCH (08:06)
[2018-02-10] MEDS: PANTOprazole SOD 40 MG TAB PO SCH (08:07)
[2018-02-10] MEDS: TAPENTADOL ER 50 MG TABCR PO SCH (08:10)
[2018-02-10 10:30] VITALS: BP 107/71; PULSE 88; TEMP 36.4; O2SAT 96
== END 2018-02-10 11:24 | disposition home health service (06) | DRG 470 ==
LOC: C.ACU 05:35 → C.3E 06:30 → ENRESERV 09:10
PROVIDERS: ADMIT Orthopaedic Surgery Sports Medicine; ATTEND Orthopaedic Surgery Sports Medicine
PROC: 0SRB04A Replacement of Left Hip Joint with Ceramic on Polyethylene Synthetic Substitute, Uncemented, Open Approach (ICD-10-PCS; principal; 2018-02-08 07:00)
DX: M16.12 Unilateral primary osteoarthritis, left hip (principal); H53.8 Other visual disturbances; R68.2 Dry mouth, unspecified; T44.3X5A Adverse effect of other parasympatholytics [anticholinergics and antimuscarinics] and spasmolytics, initial encounter; M54.40 Lumbago with sciatica, unspecified side; E66.9 Obesity, unspecified; Z79.899 Other long term (current) drug therapy; Z79.1 Long term (current) use of non-steroidal anti-inflammatories (NSAID); Z68.33 Body mass index [BMI] 33.0-33.9, adult; Z88.8 Allergy status to other drugs, medicaments and biological substances; Z91.013 Allergy to seafood